=== PATIENT | female | born 1950 | race Hispanic/Latino ===

== ENCOUNTER 2019-01-30 13:52 | Inpatient (IN) | payer MEDICARE ==
[~2019-01-30] VITALS: Ht 154.9 cm; Wt 93.9 kg
[2019-01-30 14:14] LABS: BASOPHILS % (AUTO) 2.9 % (0.0-5.0); EOSINOPHILS % (AUTO) 3.4 % (0.0-8.0); HEMATOCRIT 47.6 % (36-48); MEAN CORPUSCULAR HEMOGLOBIN 29.9 pg (27.0-33.0); MONOCYTES % (AUTO) 8.1 % (3.0-13.0); NEUTROPHILS % (AUTO) 52.6 % (40.0-77.0); NUCLEATED RED BLOOD CELLS 0.1 % (0.0-0.19); PLATELET COUNT (AUTO) 302 K/uL (130-400); RED CELL DISTRIBUTION WIDTH 13.4 % (11.0-15.5); WHITE BLOOD COUNT (AUTO) 9.3 K/uL (4.8-10.8)
[2019-01-30 14:23] LABS: INR 0.94 (0.85-1.15); PARTIAL THROMBOPLASTIN TIME 24.4 SEC (26.3-35.5); PROTHROMBIN TIME 9.9 SEC (9.6-11.6)
[2019-01-30 14:38] LABS: CREATININE 0.7 mg/dL (0.5-1.5); POTASSIUM 4.2 mmol/L (3.5-5.1)
[2019-01-30 14:42] LABS: B-TYPE NATRIURETIC PEPTIDE 29 pg/mL (0-100)
[2019-01-30 14:44] LABS: ALBUMIN 3.4 g/dL (3.5-5.0); BILIRUBIN,TOTAL 0.4 mg/dL (0.2-1.0)
[2019-01-30] MEDS ORDERED: METOPROLOL TARTRATE 1 MG/ML 5ML VIAL IV ONE (15:06)
[2019-01-30 15:53] LABS: APPEARANCE,URINE Clear (CLEAR); BILIRUBIN,URINE Negative (NEGATIVE); COLOR,URINE Yellow (YELLOW); GLUCOSE, URINE (UA) >=1000 mg/dL (NEGATIVE); KETONES,URINE Trace mg/dL (NEGATIVE); LEUKOCYTE ESTERASE ,URINE Negative (NEGATIVE); NITRATE,URINE Negative (NEGATIVE); OCCULT BLOOD,URINE Negative (NEGATIVE); PROTEIN,URINE POS 1+ mg/dL (NEGATIVE); UROBILINOGEN,URINE 0.2 mg/dL (0.2-1.0)
[2019-01-30] MEDS ORDERED: ACETAMINOPHEN 325 MG TAB PO PRN ×2 (16:00)
[2019-01-30] MEDS ORDERED: ONDANSETRON HCL 4 MG/2 ML VIAL IV PRN (16:00)
[2019-01-30 16:08] LABS: BACTERIA,URINE Rare /HPF (None Seen); RBC,URINE 0-1 /HPF (0-1); SQUAMOUS EPITHELIAL CELL,UR 0-2 /HPF (0-2)
[2019-01-30 16:09] LABS: MUCUS,URINE Few LPF (None Seen)
[2019-01-30] MEDS ORDERED: METOPROLOL TARTRATE 1 MG/ML 5ML VIAL IV PRN (16:15)
[2019-01-30] MEDS ORDERED: HYDRALAZINE HCL 20 MG/ML VIAL IV PRN (16:15)
[2019-01-30 18:41] VITALS: BP 181/97
[2019-01-30 19:14] VITALS: BP 149/83
[2019-01-30] MEDS ORDERED: TURM500C9 PO (19:29)
[2019-01-30] MEDS ORDERED: MV-M1TAB20 PO (19:29)
[2019-01-30] MEDS ORDERED: METO50TA9 PO (19:29)
[2019-01-30] MEDS ORDERED: METO100T7 PO (19:29)
[2019-01-30] MEDS ORDERED: ASPI-555 PO (19:29)
[2019-01-30] MEDS ORDERED: CETI10CA5 PO (19:29)
[2019-01-30] MEDS ORDERED: D-ME118S56 PO (19:29)
[2019-01-30] MEDS ORDERED: GING550C5 PO (19:29)
[2019-01-30] MEDS ORDERED: ALPR0.255 PO (19:29)
[2019-01-30] MEDS ORDERED: FLU VACC QS2019-20 36MOS UP/PF 60 MCG/0.5 ML ML IM ONE (20:00)
[2019-01-30] MEDS ORDERED: PNEUMOCOCCAL VACCINE POLYVALENT 0.5 ML/VIAL [PPV] IM ONE (20:00)
[2019-01-30 23:16] VITALS: BP 134/74
[2019-01-31] VITALS (7 sets, daily range): BP systolic 130–170; BP diastolic 70–103
[2019-01-31 04:44] LABS: BASOPHILS % (AUTO) 0.8 % (0.0-5.0); HEMATOCRIT 43.2 % (36-48); LYMPHOCYTES % (AUTO) 41.6 % (21.0-51.0); MEAN CORPUSCULAR HEMOGLOBIN 29.4 pg (27.0-33.0); MEAN CORPUSCULAR HGB CONC 33.2 g/dL (32.0-36.0); MEAN CORPUSCULAR VOLUME 88.4 fL (79-99); MONOCYTES % (AUTO) 9.9 % (3.0-13.0); NEUTROPHILS % (AUTO) 43.7 % (40.0-77.0); PLATELET COUNT (AUTO) 286 K/uL (130-400); RED BLOOD CELL COUNT(AUTO) 4.88 MIL/uL (4.00-5.50); RED CELL DISTRIBUTION WIDTH 13.7 % (11.0-15.5); WHITE BLOOD COUNT (AUTO) 8.9 K/uL (4.8-10.8)
[2019-01-31 05:10] LABS: BILIRUBIN,TOTAL 0.7 mg/dL (0.2-1.0); CREATININE 0.7 mg/dL (0.5-1.5)
[2019-01-31] MEDS ORDERED: FLU VACC QS2019-20 36MOS UP/PF 60 MCG/0.5 ML ML IM ONE (06:32)
[2019-01-31] MEDS ORDERED: PNEUMOCOCCAL VACCINE POLYVALENT 0.5 ML/VIAL [PPV] ONE (06:32)
[2019-01-31] MEDS ORDERED: GLUCAGON 1MG KIT 1 MG ML IM PRN (13:00)
[2019-01-31] MEDS ORDERED: CLOPIDOGREL BISULFATE 300 MG TAB PO SCH (13:00)
[2019-01-31] MEDS: CLOPIDOGREL BISULFATE 75 MG TAB PO SCH (13:00)
[2019-01-31] MEDS ORDERED: ASPIRIN 325 MG TABLET ONE (13:00)
[2019-01-31] MEDS ORDERED: DEXTROSE 50%-WATER 50 ML DISP.SYRIN IV PRN (13:00)
[2019-01-31] MEDS: ENOXAPARIN SODIUM 30 MG/0.3 ML SQ SCH (13:05)
[2019-01-31] MEDS: BENZONATATE 100 MG CAPSULE PO SCH ×2 (13:06→20:17)
--- NOTE | 2019-01-31 15:51 | NUR ---
D/C PLAN CM spoke to pt regarding d/c planning. Pt is [place] and lives with spouse. [facility] spouse can assist in care as needed. Pt has wk and w/c at home. [facility] wk is needing repairs. CM explained that PCP can arrange for new wk at next f/u. Pt verbalized understanding. Plan to home. CM to f/u. Addendum: 01/31/19 at 1555 by TELMA LOUIE CM Amended: Links added. Addendum: 01/31/19 at 1558 by TELMA LOUIE Correction---Pt has can at home. No wk or w/c. Plan remains to home. No needs verbalized or identified.
[2019-01-31] MEDS: INSULIN HUMULIN R 100 UNIT/ML 3ML SQ SCH ×2 (17:28→20:20)
[2019-01-31] MEDS: ATORVASTATIN CALCIUM 20 MG TABLET PO SCH (20:17)
[2019-01-31] MEDS: **HM** TOPROL XL 100MG PO SCH (20:17)
[2019-01-31] MEDS ORDERED: ALPRAZOLAM 0.25 MG TABLET ONE (21:57)
[2019-02-01 04:00] VITALS: BP 143/83
[2019-02-01 05:24] LABS: BASOPHILS % (AUTO) 0.7 % (0.0-5.0); HEMATOCRIT 43.6 % (36-48); LYMPHOCYTES % (AUTO) 36.8 % (21.0-51.0); MEAN CORPUSCULAR HEMOGLOBIN 30.1 pg (27.0-33.0); MEAN CORPUSCULAR HGB CONC 34.1 g/dL (32.0-36.0); MEAN CORPUSCULAR VOLUME 88.5 fL (79-99); MONOCYTES % (AUTO) 8.5 % (3.0-13.0); PLATELET COUNT (AUTO) 294 K/uL (130-400); RED BLOOD CELL COUNT(AUTO) 4.93 MIL/uL (4.00-5.50); RED CELL DISTRIBUTION WIDTH 13.6 % (11.0-15.5)
[2019-02-01 05:41] LABS: HEMOGLOBIN A1C 11.3 % (4.0-6.0)
[2019-02-01] MEDS: INSULIN HUMULIN R 100 UNIT/ML 3ML SQ SCH ×4 (05:45→21:41)
[2019-02-01 05:51] LABS: CREATININE 0.5 mg/dL (0.5-1.5); POTASSIUM 3.7 mmol/L (3.5-5.1); THYROID STIMULATING HORMONE 2.13 uIU/mL (0.36-3.74)
[2019-02-01 06:54] LABS: ERYTHROCYTE SEDIMENTATION RATE 13 MM/HR (0-30)
[2019-02-01 08:12] VITALS: BP 176/93
[2019-02-01] MEDS: CETIRIZINE HCL 5 MG TABLET PO SCH (08:21)
[2019-02-01] MEDS: ASPIRIN 325MG EC TAB 325 MG TABLET.DR PO SCH (08:22)
[2019-02-01] MEDS: **HM** TOPROL XL 50MG PO SCH (08:22)
[2019-02-01] MEDS: BENZONATATE 100 MG CAPSULE PO SCH ×3 (08:22→21:15)
[2019-02-01] MEDS: CLOPIDOGREL BISULFATE 75 MG TAB PO SCH (08:23)
[2019-02-01] MEDS: ENOXAPARIN SODIUM 30 MG/0.3 ML SQ SCH (08:24)
--- NOTE | 2019-02-01 10:00 | NUR ---
DYSPHAGIA EVAL COMPLETED. -S/S OF ASPIRATION. RECOMMEND REGULAR TEXTURE, THIN LIQUIDS; PILLS WHOLE WITH LIQUIDS. Addendum: 02/01/19 at 1357 by FEMI POLLARD, [facility] Amended: Links added.
[2019-02-01] MEDS: LISINOPRIL 5 MG TABLET PO SCH (11:26)
[2019-02-01] MEDS: INSULIN GLARGINE 100 UNITS/ML 10 ML VIAL SQ SCH (11:29)
[2019-02-01 13:43] VITALS: BP 130/62
--- NOTE | 2019-02-01 14:34 | NUR ---
RD NOTIFICATION Diet: Heart Healthy. PO intake 100% and has good appetite per pt. LBM: 02/01 per pt. Skin: 1+ non pitting edema, skin intact. RD provided DM and Heart Healthy diet and nutrition education. Pt and family verbalized understanding. Education materials provided. RD recommends add 75gmCCD to diet order EDU completed RD will follow up as needed, thank you. Addendum: 02/01/19 at [address] Amended: Links added.
--- NOTE | 2019-02-01 14:37 | NUR ---
Nutrition Education RD provided DM and Heart Healthy diet and nutrition education. Pt and family verbalized understanding. Education materials provided. Addendum: 02/01/19 at [address] Amended: Links added.
[2019-02-01 16:19] VITALS: BP 135/78
[2019-02-01 20:15] VITALS: BP 144/77
[2019-02-01] MEDS ORDERED: ALPRAZOLAM 0.25 MG TABLET PO SCH (21:00)
[2019-02-01] MEDS: **HM** TOPROL XL 100MG PO SCH (21:00)
[2019-02-01] MEDS: ATORVASTATIN CALCIUM 20 MG TABLET PO SCH ×2 (21:00→21:16)
[2019-02-02 00:20] VITALS: BP 128/58
[2019-02-02 04:18] VITALS: BP 145/77
[2019-02-02 04:34] LABS: BASOPHILS % (AUTO) 0.7 % (0.0-5.0); HEMATOCRIT 43.1 % (36-48); LYMPHOCYTES % (AUTO) 34.7 % (21.0-51.0); MEAN CORPUSCULAR HEMOGLOBIN 30.2 pg (27.0-33.0); MEAN CORPUSCULAR HGB CONC 33.8 g/dL (32.0-36.0); MEAN CORPUSCULAR VOLUME 89.3 fL (79-99); MONOCYTES % (AUTO) 10.7 % (3.0-13.0); NEUTROPHILS % (AUTO) 49.9 % (40.0-77.0); NUCLEATED RED BLOOD CELLS 0.1 % (0.0-0.19); PLATELET COUNT (AUTO) 283 K/uL (130-400); RED BLOOD CELL COUNT(AUTO) 4.82 MIL/uL (4.00-5.50); RED CELL DISTRIBUTION WIDTH 13.6 % (11.0-15.5); WHITE BLOOD COUNT (AUTO) 9.5 K/uL (4.8-10.8)
[2019-02-02 05:07] LABS: CREATININE 0.6 mg/dL (0.5-1.5)
[2019-02-02] MEDS: INSULIN HUMULIN R 100 UNIT/ML 3ML SQ SCH (06:33)
[2019-02-02] MEDS: **HM** TOPROL XL 50MG PO SCH (06:43)
[2019-02-02 07:30] VITALS: BP 121/79
[2019-02-02] MEDS ORDERED: CLOP75TA14 PO (07:54)
[2019-02-02] MEDS ORDERED: LISI-617 PO (07:54)
[2019-02-02] MEDS ORDERED: METF-444 PO (07:54)
[2019-02-02] MEDS ORDERED: BENZ-39 PO (07:56)
[2019-02-02] MEDS: ENOXAPARIN SODIUM 30 MG/0.3 ML SQ SCH (09:00)
[2019-02-02] MEDS: CETIRIZINE HCL 5 MG TABLET PO SCH (09:25)
[2019-02-02] MEDS: LISINOPRIL 5 MG TABLET PO SCH (09:25)
[2019-02-02] MEDS: ASPIRIN 325MG EC TAB 325 MG TABLET.DR PO SCH (09:25)
[2019-02-02] MEDS: CLOPIDOGREL BISULFATE 75 MG TAB PO SCH (09:25)
[2019-02-02] MEDS: BENZONATATE 100 MG CAPSULE PO SCH (09:26)
[2019-02-02] MEDS: INSULIN GLARGINE 100 UNITS/ML 10 ML VIAL SQ SCH (09:29)
--- NOTE | 2019-02-02 10:45 | NUR ---
DISCHARGE PATIENT GIVEN DISCHARGE INSTRUCTIONS VIA TEACH BACK. 20G PIV TO RFA DISCONTINUED, TIP INTACT. RX GIVEN FOR LISINOPRIL, PLAVIX, METFORMIN AND TESSALON PERLES. F/U APPOINTMENT MADE WITH DR. MAURO. PATIENT WILL NEED REFERAL FOR NEPHROLOGISTS/ONCOLOGISTS FROM PCP. PATIENT STABLE AT THIS TIME. PATIENT WHEELED TO LOBBY BY DAYANNA VALENCIA. Addendum: 02/02/19 at 1754 by MICHELLE MCDANIEL LVN LVN CORRECTION: APPOINTMENT MADE WITH DR. RIOS AT [facility]. NO REFERRAL REQUESTED.
== END 2019-02-02 10:45 | disposition home or self-care (01) | DRG 74 ==
LOC: EDH 13:52 → EDHIP 15:58 → 4BH 18:12
PROVIDERS: ADMIT Internal Medicine; ATTEND Internal Medicine
PROC: 3E02340 Introduction of Influenza Vaccine into Muscle, Percutaneous Approach (ICD-10-PCS; principal; 2019-01-31)
PROC: 3E0234Z Introduction of Serum, Toxoid and Vaccine into Muscle, Percutaneous Approach (ICD-10-PCS; 2019-01-31)
DX: G51.0 Bell's palsy (principal); I16.0 Hypertensive urgency; I10 Essential (primary) hypertension; F41.9 Anxiety disorder, unspecified; E78.5 Hyperlipidemia, unspecified; E11.9 Type 2 diabetes mellitus without complications; I25.10 Atherosclerotic heart disease of native coronary artery without angina pectoris; G89.29 Other chronic pain; Z23 Encounter for immunization
CPT/HCPCS: 36415; 70450; 70486; 70551; 71045; 71250; 80048; 80053; 80061; 81001; 82550; 82948; 83036; 83880; 84443; 84484; 85025; 85610; 85651; 85730; 86140; 86701; 87390; 90732; 92610; 93005; 93306; 93880; G0378; J0360; J1650; J1815; J3490; Q2035